=== PATIENT | male | born 1965 | race Caucasian/White ===

== ENCOUNTER 2016-12-30 12:47 | Outpatient (CLI) | payer OTHER, MEDICAID ==
[2016-03-18 10:02] VITALS: BMI 27.6
[~2016-12-30 12:47] MED LIST: CEL20 PO; CEPH500C2 PO; CITA10TA9 PO; CLIN-77 PO; DIVA250T34 PO; DIVA500T7 PO; FELB600T; FELB600T PO; HYDR2TAB34 PO; HYDR4TAB26 PO; IMI50 PO; L.RH1CAP PO; LEVE1000 PO; LEVE750T4 PO; LORA-259 PO; LORA1TAB PO; MAGN400T10 PO; MAGN400T29 PO; METR500T PO; OXCA150T5 PO; OXCA300T38 PO; OXCA300T4 PO; OXCA600T5 PO; OXYC-130 PO; OXYC5TAB84 PO; POTA-118 PO; WARF5TAB2 PO; ZOLP10TA2 PO; [UNRECOGNIZED DRUG - CODE] PO; [UNRECOGNIZED DRUG - OTHER] PO
== END 2016-12-30 19:20 | disposition home or self-care (01) ==
LOC: SUS 12:47
PROVIDERS: ATTEND Internal Medicine Hematology & Oncology
DX: R22.2 Localized swelling, mass and lump, trunk (principal); Z85.828 Personal history of other malignant neoplasm of skin

== ENCOUNTER 2017-03-01 17:11 | Emergency (ER) | payer OTHER, MEDICAID ==
[~2017-03-01] VITALS: Ht 175.3 cm; Wt 86.2 kg
[2017-03-01 17:11] VITALS: BP_SYST 123
[~2017-03-01 17:11] MED LIST changes: -CEPH500C2 PO; -CITA10TA9 PO; -CLIN-77 PO; -DIVA250T34 PO; -FELB600T; -FELB600T PO; -HYDR2TAB34 PO; -HYDR4TAB26 PO; -IMI50 PO; -LEVE1000 PO; -LORA-259 PO; -MAGN400T29 PO; -METR500T PO; -OXCA150T5 PO; -OXCA300T38 PO; -OXCA300T4 PO; -OXCA600T5 PO; -OXYC-130 PO; -OXYC5TAB84 PO; -POTA-118 PO; -WARF5TAB2 PO; -[UNRECOGNIZED DRUG - OTHER] PO
[2017-03-01 17:43] LABS: BASOPHILS % (AUTO) 0.7 % (0.0-2.0); EOSINOPHILS # (AUTO) 0.1 K/uL (0.0-0.4); EOSINOPHILS % (AUTO) 1.6 % (0.0-4.0); HEMATOCRIT 40.3 % (36-54); HEMOGLOBIN 13.7 g/dL (14.0-18.0); LYMPHOCYTES # (AUTO) 1.7 K/uL (1.0-5.5); LYMPHOCYTES % (AUTO) 36.1 % (20.5-51.5); MEAN CORPUSCULAR HEMOGLOBIN 33 pg (27-31); MEAN CORPUSCULAR HGB CONC 34 % (32-36); MEAN CORPUSCULAR VOLUME 98 fL (79.0-98.0); MONOCYTES # (AUTO) 0.6 K/uL (0.0-1.0); MONOCYTES % (AUTO) 13.6 % (1.7-9.3); NEUTROPHILS # (AUTO) 2.3 K/uL (1.8-7.7); PLATELET COUNT (AUTO) 226 K/uL (130-430); RED BLOOD CELL COUNT(AUTO) 4.12 MIL/uL (4.2-6.2); RED CELL DISTRIBUTION WIDTH 12.4 % (9.0-15.0); WHITE BLOOD COUNT (AUTO) 4.7 K/uL (4.8-10.8)
[2017-03-01 17:58] LABS: ALANINE AMINOTRANSFERASE 20 U/L (12-78); ALBUMIN 3.7 g/dL (3.4-4.8); ASPARTATE AMINOTRANSFERASE 25 U/L (10-37); CALCIUM 8.8 mg/dL (8.4-11.0); CHLORIDE 104 mmol/L (98-107); CREATININE 0.78 mg/dL (0.55-1.30); GLUCOSE 103 mg/dL (70-99); POTASSIUM 4.9 mmol/L (3.5-5.1); SODIUM SERUM 134 mmol/L (136-145); TOTAL BILIRUBIN 0.4 mg/dL (0.0-1.0)
[2017-03-01 17:59] LABS: GFR AFRICAN AMERICAN 134 mL/min (>90)
[2017-03-01 18:00] LABS: ANION GAP < 3 (5-15)
[2017-03-01 18:01] LABS: VALPROIC ACID 122 ug/mL (50-100)
[2017-03-01 18:11] LABS: UREA NITROGEN, BLOOD 20 mg/dL (8-21)
[2017-03-01] MEDS: NS 500 ML IV ONE (19:21)
[2017-03-01] MEDS: KETOROLAC TROMETHAMINE 30 MG VIAL IVP ONE (19:27)
[2017-03-01] MEDS: PROCHLORPERAZINE EDISYLATE 10 MG/2 ML VIAL IVP ONE (19:27)
[2017-03-01] MEDS: DEXAMETHASONE SOD PHOSPHATE 10 MG/ML VIAL IVP ONE (19:28)
[2017-03-01] MEDS: LORazepam 2 MG/ML VIAL (FOR ER USE) IVP ONE ×2 (19:59→20:17)
[2017-03-01 20:14] VITALS: BP_SYST 121
== END 2017-03-01 20:14 | disposition home or self-care (01) ==
LOC: SED 17:11
DX: G40.409 Other generalized epilepsy and epileptic syndromes, not intractable, without status epilepticus (principal); Z85.828 Personal history of other malignant neoplasm of skin; Z79.899 Other long term (current) drug therapy
CPT/HCPCS: 36415; 80053; 80164; 83735; 85025; 93005; 96361; 96374; 96375; 99285; J0780; J1100; J1885; J2060; J7040

== ENCOUNTER 2017-08-20 07:41 | Emergency (ER) | payer OTHER, MEDICAID ==
[~2017-08-20] VITALS: Ht 182.9 cm; Wt 108.9 kg
[2017-08-20 07:41] VITALS: BP_SYST 160
[2017-08-20] MEDS ORDERED: LORazepam 2 MG/ML VIAL (FOR ER USE) ONE (07:50)
[2017-08-20] MEDS ORDERED: NARA2.5T10 PO (07:55)
[2017-08-20] MEDS ORDERED: IMI50 PO (07:55)
[2017-08-20] MEDS ORDERED: LORazepam 2 MG/ML VIAL IVP ONE (08:00)
[2017-08-20 08:22] LABS: HEMOGLOBIN 14.4 g/dL (14.0-18.0); MEAN CORPUSCULAR HEMOGLOBIN 32 pg (27-31); MEAN CORPUSCULAR HGB CONC 32 % (32-36); MEAN CORPUSCULAR VOLUME 100 fL (79.0-98.0); PLATELET COUNT (AUTO) 349 K/uL (130-430); RED CELL DISTRIBUTION WIDTH 12.5 % (9.0-15.0); WHITE BLOOD COUNT (AUTO) 13.2 K/uL (4.8-10.8)
[2017-08-20 08:59] LABS: SODIUM SERUM 140 mmol/L (136-145)
[2017-08-20 09:00] LABS: CHLORIDE 100 mmol/L (98-107); POTASSIUM 3.9 mmol/L (3.5-5.1)
[2017-08-20 09:03] LABS: CALCIUM 9.8 mg/dL (8.4-11.0); UREA NITROGEN, BLOOD 17 mg/dL (8-21)
[2017-08-20 09:04] LABS: ALANINE AMINOTRANSFERASE 62 U/L (12-78); ALBUMIN 4.4 g/dL (3.4-4.8); ASPARTATE AMINOTRANSFERASE 30 U/L (10-37); CREATININE 1.55 mg/dL (0.55-1.30); GFR AFRICAN AMERICAN 61 mL/min (>90); TOTAL BILIRUBIN 0.2 mg/dL (0.0-1.0)
[2017-08-20 09:05] LABS: VALPROIC ACID 36 ug/mL (50-100)
[2017-08-20 09:06] LABS: ANION GAP 33 (5-15); BAND % (MANUAL) 5 % (0-6); BASOPHILS % (MANUAL) 0 % (0-2); EOSINOPHILS % (MANUAL) 2 % (0-7); GLUCOSE 234 mg/dL (70-99); LYMPHOCYTES % (MANUAL) 37 % (20-46); MONOCYTES % (MANUAL) 16 % (0-11)
[2017-08-20] MEDS ORDERED: NACL 0.9% 1,000 ML IV ONE ×2 (09:15→10:15)
[2017-08-20 11:12] LABS: CALCIUM 8.4 mg/dL (8.4-11.0); CREATININE 0.98 mg/dL (0.55-1.30)
[2017-08-20] MEDS ORDERED: DIVALPROEX SODIUM 250 MG TABLET(DEPAKOTE) PO ONE (12:00)
[2017-08-20 12:25] VITALS: BP_SYST 128
== END 2017-08-20 12:25 | disposition home or self-care (01) ==
LOC: SED 07:41
DX: G40.89 Other seizures (principal); Z85.820 Personal history of malignant melanoma of skin; Z79.899 Other long term (current) drug therapy
CPT/HCPCS: 36415; 71010; 80048; 80053; 80164; 83880; 84484; 85007; 85027; 93005; 96361; 96374; 99285; J2060; J7030

== ENCOUNTER 2017-09-25 23:49 | Inpatient (IN) | payer OTHER, MEDICAID ==
[~2017-09-25] VITALS: Ht 175.3 cm; Wt 98.4 kg
[~2017-09-25 23:49] MED LIST changes: +IMI50 PO; +NARA2.5T10 PO
[2017-09-25 23:50] VITALS: BP_SYST 136
--- NOTE | 2017-09-25 23:50 | NUR ---
Placed in room 04 . Placed on awake overnight monitor, blood pressure machine and pulse oximeter. To gown for exam. Side rails up. Report received from JAYME Christie.
--- NOTE | 2017-09-25 23:52 | NUR ---
Patient AAO x4, sitting in bed, c/o mid-sternum chest pain 10/10, non-radiating, denies shortness of breath, denies nausea or vomiting. Patient skin dry, no diaphoresis noted. Patient able to speak in full sentences without pauses. Patient has hx of back pain. No acute distress noted. Will continue to monitor.
[2017-09-26] MEDS ORDERED: KETOROLAC TROMETHAMINE 60 MG/2 ML VIAL IM ONE
[2017-09-26] MEDS ORDERED: HYDROmorphone 2 MG/ML VIAL IM ONE
--- NOTE | 2017-09-26 | NUR ---
ER at bedside examining patient.
--- NOTE | 2017-09-26 00:40 | NUR ---
Patient given IM torodol and IM dilaudid per Dr. Lea order. Patient VSS, talking with mother at bedside, no acute distress noted. Will continue to monitor.
--- NOTE | 2017-09-26 01:09 | NUR ---
Patient reports that medications did not control pain. Pain is stated to be 8/10, to left chest and upper back, no nausea or vomiting. Patient exhibiting no signs of distress. MD notified.
[2017-09-26] MEDS ORDERED: HYDROmorphone 2 MG/ML VIAL IVP ONE (01:45)
--- NOTE | 2017-09-26 01:45 | NUR ---
Unable to gain IV access for pain medication for patient. Dr. Lea informed and made aware.
--- NOTE | 2017-09-26 02:15 | NUR ---
Patient states he does not want an IV and that " my pain has actually gone down to a 3/10." Md informed.
--- NOTE | 2017-09-26 02:20 | NUR ---
Md Dr. Lea gave ok for patient to be given dilaudid IM for pain control.
[2017-09-26 02:29] LABS: BASOPHILS % (AUTO) 0.6 % (0.0-2.0); EOSINOPHILS % (AUTO) 0.7 % (0.0-4.0); HEMATOCRIT 42.2 % (36-54); HEMOGLOBIN 14.3 g/dL (14.0-18.0); LYMPHOCYTES # (AUTO) 1.4 K/uL (1.0-5.5); LYMPHOCYTES % (AUTO) 27.4 % (20.5-51.5); MEAN CORPUSCULAR HEMOGLOBIN 33 pg (27-31); MEAN CORPUSCULAR HGB CONC 34 % (32-36); MEAN CORPUSCULAR VOLUME 97 fL (79.0-98.0); MONOCYTES # (AUTO) 0.3 K/uL (0.0-1.0); MONOCYTES % (AUTO) 6.5 % (1.7-9.3); NEUTROPHILS # (AUTO) 3.5 K/uL (1.8-7.7); NEUTROPHILS % (AUTO) 64.8 % (40.0-70.0); PLATELET COUNT (AUTO) 274 K/uL (130-430); RED BLOOD CELL COUNT(AUTO) 4.33 MIL/uL (4.2-6.2); WHITE BLOOD COUNT (AUTO) 5.2 K/uL (4.8-10.8)
[2017-09-26 02:39] LABS: ANION GAP < 3 (5-15); CALCIUM 9.5 mg/dL (8.4-11.0); CHLORIDE 100 mmol/L (98-107); CREATININE 0.82 mg/dL (0.55-1.30); GFR AFRICAN AMERICAN 127 mL/min (>90); GLUCOSE 135 mg/dL (70-99); POTASSIUM 4.3 mmol/L (3.5-5.1); SODIUM SERUM 131 mmol/L (136-145); UREA NITROGEN, BLOOD 15 mg/dL (8-21)
[2017-09-26 02:44] LABS: ALANINE AMINOTRANSFERASE 39 U/L (12-78); ALBUMIN 4.3 g/dL (3.4-4.8); ASPARTATE AMINOTRANSFERASE 40 U/L (10-37); CHOLESTEROL 248 mg/dL (<200); HDL CHOLESTEROL 62 mg/dL (>45); LDL CHOLESTEROL 151 mg/dL (<100); TOTAL BILIRUBIN 0.2 mg/dL (0.0-1.0); TRIGLYCERIDES 196 mg/dL (30-150)
[2017-09-26] MEDS ORDERED: NITROGLYCERIN 1 INCH (GM) OINT. TP ONE (03:00)
[2017-09-26] MEDS ORDERED: ASPIRIN 325 MG TABLET PO ONE (03:00)
[2017-09-26] MEDS ORDERED: ONDANSETRON HCL 4 MG/2 ML VIAL IVP PRN (04:00)
[2017-09-26] MEDS ORDERED: HYDROmorphone 1 MG INJ. 1 MG/ML AMPUL IVP PRN (04:00)
[2017-09-26] MEDS ORDERED: DIPHENHYDRAMINE INJ 50 MG/ML VIAL IVP PRN (04:00)
[2017-09-26] MEDS ORDERED: HEPARIN SODIUM,PORCINE 5000 UNITS/ML VIAL IVP ONE (04:00)
[2017-09-26] MEDS ORDERED: *HEPARIN PER PHARMACY XX ONE (04:00)
[2017-09-26] MEDS ORDERED: NARATRIPTAN HCL 2.5 MG PO SCH (04:15)
[2017-09-26] MEDS ORDERED: LORazepam 1 MG TABLET PO PRN (04:15)
[2017-09-26] MEDS ORDERED: SUMAtriptan SUCCINATE 50 MG TABLET PO PRN (04:15)
[2017-09-26 04:17] VITALS: BP_SYST 130
--- NOTE | 2017-09-26 04:17 | NUR ---
ADMIT NOTE Received pt from ER to the floor with a diagnosis of ACUTE MD. Admission process initiated. patient oriented to pain management, safety and call light-teach back done.
--- NOTE | 2017-09-26 04:20 | NUR ---
Patient will be admitted to care of Dr. Vila. Admitted to Tele unit. Will go to room 103A. Belongings list completed. Summary report printed. Report will be given at bedside.
--- NOTE | 2017-09-26 04:20 | NUR ---
Transfer to tele 103 via [facility] protocol. Licensed nurse present. IV present no signs or symptoms of infiltration.
[2017-09-26 04:37] VITALS: BP_SYST 130
[2017-09-26] MEDS ORDERED: HEPARIN SODIUM,PORCINE 3000 UNITS/0.6 ML BOLUS IVP PRN (04:45)
[2017-09-26] MEDS ORDERED: HEPARIN SODIUM,PORCINE 2000 UNITS/0.4 ML BOLUS IVP PRN (04:45)
[2017-09-26] MEDS ORDERED: HEPARIN 25,000 UNITS in 250 ML PREMIX IV PRN (04:45)
[2017-09-26 05:15] LABS: BILIRUBIN,URINE NEGATIVE (NEGATIVE); BLOOD, URINE NEGATIVE (NEGATIVE); CLARITY/URINE CLOUDY (CLEAR); COLOR,URINE YELLOW (YELLOW); GLUCOSE,URINE NEGATIVE (NEGATIVE); KETONES,URINE NEGATIVE (NEGATIVE); LEUKOCYTE ESTERASE ,URINE 1+ (NEGATIVE); NITRITE, URINE NEGATIVE (NEGATIVE); PROTEIN URINE 1+ (NEGATIVE); UROBILINOGEN,URINE 0.2 (0.2-1.0)
--- NOTE | 2017-09-26 05:15 | NUR ---
CONSULT: CONSULT CALLED FOR DR. NICHOLE I SPOKE WITH NELLIE NAVARRETE REASON FOR CONSULT: ACUTE [facility] ORDERING CONSULT: DR. JAGDEEP SEBASTIAN I CALLED [phone]
[2017-09-26 05:19] LABS: BACTERIA,URINE MODERATE /HPF (None Seen); RBC,URINE 0-3 /HPF (0-3); URINE AMORPHOUS URATE 1+ /HPF (None Seen)
[2017-09-26 05:25] LABS: BARBITURATE, URINE NEGATIVE (NEG <=200); BENZODIAZEPINE, URINE NEGATIVE (NEG <=150); CANNABINOID, URINE NEGATIVE (NEG <=50); COCAINE, URINE NEGATIVE (NEG <=150); METHAMPHETAMINES SCREEN,URINE NEGATIVE (NEG <=500); OPIATE, URINE NEGATIVE (NEG <=100); PHENCYCLIDINE SCREEN,URINE NEGATIVE (NEG <=25); UR TRICYCLIC ANTIDEPRESSANTS NEGATIVE (NEG <=300); URINE AMPHETAMINE NEGATIVE (NEG <=500); URINE METHADONE NEGATIVE (NEG <=200); URINE OXYCODONE SCREEN NEGATIVE (NEG <=100); URINE PROPOXYPHENE SCREEN NEGATIVE (NEG <=300)
--- NOTE | 2017-09-26 05:25 | NUR ---
HEP DRIP STARTED 5000 UNITS OF HEPARIN IV PUSH GIVEN, THEN STARTED DRIP AT 10CC/HR.
--- NOTE | 2017-09-26 05:50 | NUR ---
PTT 23.8 CORRECTION:ACTUAL PTT IS 23.8
--- NOTE | 2017-09-26 07:25 | NUR ---
Opening Note: Patient laying in bed awake. Seizure pads in place, suction set up and nasal cannula at bedside. IV [patent and intact. Patient denies SOB nad respiratory distress. Patient denies chest pain and discomfort. Bed in low position, wheels locked, side rails up and call light within reach.
--- NOTE | 2017-09-26 07:39 | NUR ---
FINAL NOTES PATIENT IS AWAKE WATCHING TV AT THIS TIME. NO C/O PAIN AND NO S/S OF ANY DISTRESS NOTED. ALL NEEDS MET AND ANTICIPATED BY NOC NURSES. CALL LIGHT IN REACH, ENDORSED CARE TO INCOMING NURSES NADEEM RN AND RADHA DELACRUZ.
[2017-09-26 08:00] VITALS: BP_SYST 106
--- NOTE | 2017-09-26 08:14 | NUR ---
Nutrition Update Jorge Scale 18 noted. Pt admitted for acute NC Diet: cardiac low cholesterol low fat 2gm Na diet BMI: 32 kg/m2 RD to follow per nutrition care standards.
[2017-09-26] MEDS ORDERED: levETIRAcetam 500 MG TABLET PO SCH (09:00)
[2017-09-26] MEDS ORDERED: MAGNESIUM OXIDE 400 MG TABLET PO SCH (09:00)
[2017-09-26] MEDS ORDERED: CITALOPRAM HYDROBROMIDE 20 MG TABLET PO SCH (09:00)
[2017-09-26] MEDS ORDERED: FELBAMATE 400 MG PO SCH ×3 (09:00→15:00)
--- NOTE | 2017-09-26 10:10 | NUR ---
Rounding: Patient laying in bed asleep.
[2017-09-26 11:11] VITALS: BP_SYST 110
[2017-09-26 11:19] VITALS: BP_SYST 110
--- NOTE | 2017-09-26 11:20 | NUR ---
transfer Dr Alfaro here to see patient. Critical lab of troponin relayed to . pt is to transfer to [facility] for cardiac cath. Called Admitting for verification of insurance, warehouse order selector for room assignment and laboratory miller for schedule. acls transport arrange for 12 noon with [facility]. RN notified patient and pt mother re transfer.
--- NOTE | 2017-09-26 11:50 | NUR ---
CALLED [employer] FOR REPORT: CALLED [employer] FOR REPORT. SPOKE TO RECEIVING NURSE, GENA. REPORT GIVEN. GENA IS AWARE OF ESTIMATED TIME FOR RAILROAD WATCHMAN AND PLAN OF CARE FOR ANGIOGRAM TIME. ALL QUESTIONS ANSWERED.
--- NOTE | 2017-09-26 11:54 | NUR ---
READY FOR TRANSFER: PATIENT IS ON PINK GOWN AND PINK BLANKET, WHITE NAME BAND ON. ALL BELONGINGS IN BELONGING BAG. PATIENT IS AWARE OF PLAN FOR TRANSFER. MOTHER GIANNI BRAY IS AWARE OF TRANSFER. PATIENT SIGNS CONSENT FOR AUTHORIZATION FOR TRANSFER. AWAITING FOR AMBULANCE.
[2017-09-26] MEDS ORDERED: HEPARIN SODIUM,PORCINE 5000 UNITS/ML VIAL IV ONE ×2 (12:30→12:45)
--- NOTE | 2017-09-26 12:33 | NUR ---
CALLED [employer]: CALLED [employer] AND SPOKE TO RECEIVING NURSE GENA, SHE IS AWARE THAT PATIENT RECEIVED HEPARIN BOLUS [address] NICHOLE PRIOR TO DISCHARGE.
--- NOTE | 2017-09-26 12:35 | NUR ---
PT TRANSFERRED Report given to Thao at [facility]. Transfer packet with Transfer Orders and Medication Reconciliation form given to EMT with report. Exitcare provided. [facility] ID band removed, replaced with ID band with pt's name and . IV CATHTER intact, no active bleeding. All belongings sent with patient. Patient left floor via gurney escorted by EMT in no distress.
[2017-09-26] MEDS ORDERED: LACTOBACILLUS RHAMNOSUS GG PO SCH (15:00)
[2017-09-26] MEDS ORDERED: DIVALPROEX SODIUM 500 MG TABLET( DEPAKOTE) PO SCH (15:00)
[2017-09-26] MEDS ORDERED: LACTOBACILLUS RHAMNOSUS GG 1 CAP CAPSULE PO SCH (15:00)
[2017-09-26] MEDS ORDERED: ZOLPIDEM TARTRATE 5 MG TABLET PO SCH (21:00)
== END 2017-09-26 12:35 | disposition short-term general hospital (02) | DRG 282 ==
LOC: SED 23:49 → STU 09-26 04:08
PROVIDERS: ADMIT Internal Medicine; ATTEND Internal Medicine
DX: I21.4 Non-ST elevation (NSTEMI) myocardial infarction (principal); E11.9 Type 2 diabetes mellitus without complications; F03.90 Unspecified dementia, unspecified severity, without behavioral disturbance, psychotic disturbance, mood disturbance, and anxiety; J44.9 Chronic obstructive pulmonary disease, unspecified; E78.5 Hyperlipidemia, unspecified; G40.909 Epilepsy, unspecified, not intractable, without status epilepticus; K21.9 Gastro-esophageal reflux disease without esophagitis; I10 Essential (primary) hypertension; E66.9 Obesity, unspecified; Z95.0 Presence of cardiac pacemaker; Z85.828 Personal history of other malignant neoplasm of skin; Z68.32 Body mass index [BMI] 32.0-32.9, adult
CPT/HCPCS: 36415; 71010; 80053; 80061; 80164-TC; 80307; 81000-TC; 83880; 84484; 85025; 85610-TC; 85730-TC; 87086; 93005; 96372; 99285; J1170; J1644; J1885

== ENCOUNTER 2017-10-01 09:32 | Outpatient (CLI) | payer OTHER, MEDICAID ==
[~2017-10-01 09:32] MED LIST changes: -NARA2.5T10 PO
== END 2017-10-01 19:01 | disposition home or self-care (01) ==
LOC: SCT 09:32
PROVIDERS: ATTEND Internal Medicine Hospice and Palliative Medicine
DX: M47.894 Other spondylosis, thoracic region (principal); M47.896 Other spondylosis, lumbar region; M48.061 Spinal stenosis, lumbar region without neurogenic claudication; I70.90 Unspecified atherosclerosis
CPT/HCPCS: 72128; 72131

== ENCOUNTER 2018-01-21 09:50 | Inpatient (IN) | payer OTHER, MEDICAID ==
[~2018-01-21] VITALS: Ht 175.3 cm; Wt 93.0 kg
[2018-01-21 09:50] VITALS: BP_SYST 131
[~2018-01-21 09:50] MED LIST changes: -L.RH1CAP PO; +NARA2.5T10 PO; +OSEL75CA PO
[2018-01-21] MEDS ORDERED: LORazepam 2 MG/ML VIAL (FOR ER USE) IVP ONE (10:00)
[2018-01-21] MEDS ORDERED: NACL 0.9% 1,000 ML IV ONE (10:00)
[2018-01-21 10:40] LABS: CALCIUM 9.2 mg/dL (8.4-11.0); CREATININE 1.02 mg/dL (0.55-1.30); POTASSIUM 3.5 mmol/L (3.5-5.1)
[2018-01-21 10:44] LABS: BASOPHILS % (AUTO) 0.5 % (0.0-2.0); EOSINOPHILS # (AUTO) 0.1 K/uL (0.0-0.4); EOSINOPHILS % (AUTO) 2.7 % (0.0-4.0); HEMATOCRIT 42.2 % (36-54); HEMOGLOBIN 14.2 g/dL (14.0-18.0); LYMPHOCYTES # (AUTO) 2.2 K/uL (1.0-5.5); LYMPHOCYTES % (AUTO) 40.2 % (20.5-51.5); MEAN CORPUSCULAR HEMOGLOBIN 33 pg (27-31); MEAN CORPUSCULAR HGB CONC 34 % (32-36); MEAN CORPUSCULAR VOLUME 97 fL (79.0-98.0); MONOCYTES # (AUTO) 0.5 K/uL (0.0-1.0); MONOCYTES % (AUTO) 9.9 % (1.7-9.3); NEUTROPHILS # (AUTO) 2.5 K/uL (1.8-7.7); NEUTROPHILS % (AUTO) 46.7 % (40.0-70.0); PLATELET COUNT (AUTO) 271 K/uL (130-430); RED BLOOD CELL COUNT(AUTO) 4.35 MIL/uL (4.2-6.2); RED CELL DISTRIBUTION WIDTH 12.5 % (9.0-15.0); WHITE BLOOD COUNT (AUTO) 5.4 K/uL (4.8-10.8)
[2018-01-21 10:46] LABS: ALBUMIN 3.7 g/dL (3.4-4.8); TOTAL BILIRUBIN 0.2 mg/dL (0.0-1.0)
[2018-01-21] MEDS ORDERED: VALPROIC ACID 250 MG CAPSULE (DEPAKENE) PO ONE (11:15)
[2018-01-21] MEDS ORDERED: ONDANSETRON HCL 4 MG/2 ML VIAL IVP ONE (12:15)
[2018-01-21] MEDS ORDERED: MORPHINE 2 MG/ML INJ. SYRINGE IVP ONE (12:15)
[2018-01-21 12:55] VITALS: BP_SYST 108
[2018-01-21] MEDS ORDERED: LORazepam 1 MG TABLET PO PRN (13:30)
[2018-01-21] MEDS ORDERED: CITALOPRAM HYDROBROMIDE 20 MG TABLET PO ONE (14:45)
[2018-01-21] MEDS: DIVALPROEX SODIUM 500 MG TABLET( DEPAKOTE) PO SCH ×2 (14:56→20:27)
[2018-01-21] MEDS: levETIRAcetam 500 MG TABLET PO SCH ×2 (14:56→20:27)
[2018-01-21] MEDS: FELBAMATE 400 MG PO SCH ×2 (15:13→20:28)
[2018-01-21 20:00] VITALS: BP_SYST 112
[2018-01-21] MEDS ORDERED: ACETAMINOPHEN 325 MG TABLET PO PRN (20:15)
[2018-01-21] MEDS: HYDROcodone/ACETAMIN 5-325 MG TAB (NORCO/ VICODIN) PO PRN (20:27)
[2018-01-21] MEDS: MAGNESIUM OXIDE 400 MG TABLET PO SCH (20:27)
[2018-01-21] MEDS: ZOLPIDEM TARTRATE 5 MG TABLET PO SCH (21:55)
[2018-01-22 02:01] VITALS: BP_SYST 106
[2018-01-22] MEDS: HYDROcodone/ACETAMIN 5-325 MG TAB (NORCO/ VICODIN) PO PRN (06:03)
[2018-01-22 08:05] VITALS: BP_SYST 100
[2018-01-22] MEDS: levETIRAcetam 500 MG TABLET PO SCH ×3 (09:15→21:23)
[2018-01-22] MEDS: MAGNESIUM OXIDE 400 MG TABLET PO SCH ×2 (09:16→21:22)
[2018-01-22] MEDS: DIVALPROEX SODIUM 500 MG TABLET( DEPAKOTE) PO SCH ×3 (09:18→21:23)
[2018-01-22] MEDS: CITALOPRAM HYDROBROMIDE 20 MG TABLET PO SCH (09:18)
[2018-01-22] MEDS: FELBAMATE 400 MG PO SCH ×3 (09:19→21:24)
[2018-01-22 12:23] VITALS: BP_SYST 102
[2018-01-22 16:00] VITALS: BP_SYST 108
[2018-01-22 20:49] VITALS: BP_SYST 109
[2018-01-22] MEDS: ZOLPIDEM TARTRATE 5 MG TABLET PO SCH (21:22)
[2018-01-22 23:45] VITALS: BP_SYST 114
[2018-01-23 08:14] VITALS: BP_SYST 121
[2018-01-23] MEDS: FELBAMATE 400 MG PO SCH ×2 (08:58→14:06)
[2018-01-23] MEDS: MAGNESIUM OXIDE 400 MG TABLET PO SCH (08:58)
[2018-01-23] MEDS: levETIRAcetam 500 MG TABLET PO SCH ×2 (08:58→14:06)
[2018-01-23] MEDS: DIVALPROEX SODIUM 500 MG TABLET( DEPAKOTE) PO SCH ×2 (08:58→14:06)
[2018-01-23] MEDS: CITALOPRAM HYDROBROMIDE 20 MG TABLET PO SCH (08:58)
[2018-01-23 12:00] VITALS: BP_SYST 120
[2018-01-23 13:42] VITALS: BP_SYST 120
== END 2018-01-23 14:15 | disposition home or self-care (01) | DRG 101 ==
LOC: SED 09:50 → SMU 12:01
PROVIDERS: ADMIT Internal Medicine Hospice and Palliative Medicine; ATTEND Internal Medicine Hospice and Palliative Medicine
DX: G40.409 Other generalized epilepsy and epileptic syndromes, not intractable, without status epilepticus (principal); F05 Delirium due to known physiological condition; M54.9 Dorsalgia, unspecified; Z79.899 Other long term (current) drug therapy; Z85.828 Personal history of other malignant neoplasm of skin
CPT/HCPCS: 36415; 72110; 80053; 80164-TC; 83735-TC; 85025; 93005; J2060; J2270; J2405; J7030

== ENCOUNTER 2018-04-23 13:05 | Outpatient (CLI) | payer OTHER, MEDICAID ==
[~2018-04-23 13:05] MED LIST changes: +CLOB10TA PO; -IMI50 PO
[2018-04-23 13:56] LABS: BILIRUBIN,URINE NEGATIVE (NEGATIVE); BLOOD, URINE NEGATIVE (NEGATIVE); CLARITY/URINE CLEAR (CLEAR); COLOR,URINE YELLOW (YELLOW); GLUCOSE,URINE NEGATIVE (NEGATIVE); KETONES,URINE NEGATIVE (NEGATIVE); LEUKOCYTE ESTERASE ,URINE TRACE (NEGATIVE); NITRITE, URINE NEGATIVE (NEGATIVE); PROTEIN URINE 1+ (NEGATIVE); UROBILINOGEN,URINE 0.2 (0.2-1.0)
[2018-04-23 14:02] LABS: BASOPHILS % (AUTO) 0.7 % (0.0-2.0); EOSINOPHILS # (AUTO) 0.1 K/uL (0.0-0.4); EOSINOPHILS % (AUTO) 2.1 % (0.0-4.0); HEMATOCRIT 42.3 % (36-54); HEMOGLOBIN 13.9 g/dL (14.0-18.0); LYMPHOCYTES # (AUTO) 1.7 K/uL (1.0-5.5); LYMPHOCYTES % (AUTO) 29.1 % (20.5-51.5); MEAN CORPUSCULAR HEMOGLOBIN 32 pg (27-31); MEAN CORPUSCULAR HGB CONC 33 % (32-36); MEAN CORPUSCULAR VOLUME 98 fL (79.0-98.0); MONOCYTES # (AUTO) 0.5 K/uL (0.0-1.0); MONOCYTES % (AUTO) 8.8 % (1.7-9.3); NEUTROPHILS # (AUTO) 3.5 K/uL (1.8-7.7); NEUTROPHILS % (AUTO) 59.3 % (40.0-70.0); PLATELET COUNT (AUTO) 233 K/uL (130-430); RED CELL DISTRIBUTION WIDTH 13.6 % (9.0-15.0); WHITE BLOOD COUNT (AUTO) 5.9 K/uL (4.8-10.8)
[2018-04-23 14:09] LABS: RBC,URINE 0-3 /HPF (0-3)
[2018-04-23 14:10] LABS: BACTERIA,URINE FEW /HPF (None Seen); MUCUS,URINE None Seen /LPF (None Seen)
[2018-04-23 14:40] LABS: ALBUMIN 3.3 g/dL (3.4-4.8); CALCIUM 8.9 mg/dL (8.4-11.0); CREATININE 0.85 mg/dL (0.55-1.30); THYROID STIMULATING HORMONE 3.74 uIu/mL (0.34-4.82); TOTAL BILIRUBIN 0.1 mg/dL (0.0-1.0)
== END 2018-04-23 20:41 | disposition home or self-care (01) ==
LOC: SLB 13:05
PROVIDERS: ATTEND Internal Medicine Hospice and Palliative Medicine
DX: I10 Essential (primary) hypertension (principal); J18.9 Pneumonia, unspecified organism; R53.83 Other fatigue; E78.5 Hyperlipidemia, unspecified; K21.9 Gastro-esophageal reflux disease without esophagitis; E11.9 Type 2 diabetes mellitus without complications; J44.9 Chronic obstructive pulmonary disease, unspecified; Z79.899 Other long term (current) drug therapy
CPT/HCPCS: 36415; 80053; 81000-TC; 84443-TC; 85025

== ENCOUNTER 2018-05-25 15:34 | Emergency (ER) | payer OTHER, MEDICAID ==
[~2018-05-25] VITALS: Ht 175.3 cm; Wt 102.1 kg
[2018-05-25 15:45] VITALS: BP_SYST 110
--- NOTE | 2018-05-25 15:50 | NUR ---
Patient to ER bed 8 to gown for evaluation. Side rails up. Report given to Татьяна DELACRUZ.
--- NOTE | 2018-05-25 15:54 | NUR ---
Collette REGIONAL ENGINEER at bedside examining patient.
--- NOTE | 2018-05-25 15:58 | NUR ---
PT AAOX4, ABLE TO VERBALIZE NEEDS. PT STATES FOR THE PAST 1 MONTH, HE HAS HAD SWELLING/PAIN TO LEFT ANKLE/FOOT. LEFT LEG SLIGHTLY RED IN COMPARISON TO RIGHT. PT C/O 6/10 PAIN AT THIS TIME, STATES HE HAS NOT BEEN TAKING ANY PAIN MEDICATION AT HOME. PT STATES HE HAS DIFFICULTY WALKING D/T PAIN. DIFFICULTY WITH PLANTAR FLEXION OBSERVED. NO OTHER COMPLAINTS/INJURIES PER PT OR NOTED.
[2018-05-25 16:46] LABS: BASOPHILS % (AUTO) 0.9 % (0.0-2.0); EOSINOPHILS # (AUTO) 0.1 K/uL (0.0-0.4); EOSINOPHILS % (AUTO) 2.4 % (0.0-4.0); HEMATOCRIT 40.8 % (36-54); LYMPHOCYTES # (AUTO) 1.8 K/uL (1.0-5.5); LYMPHOCYTES % (AUTO) 32.6 % (20.5-51.5); MEAN CORPUSCULAR HEMOGLOBIN 33 pg (27-31); MEAN CORPUSCULAR HGB CONC 34 % (32-36); MEAN CORPUSCULAR VOLUME 97 fL (79.0-98.0); MONOCYTES # (AUTO) 0.5 K/uL (0.0-1.0); MONOCYTES % (AUTO) 8.7 % (1.7-9.3); NEUTROPHILS # (AUTO) 3.1 K/uL (1.8-7.7); NEUTROPHILS % (AUTO) 55.4 % (40.0-70.0); PLATELET COUNT (AUTO) 209 K/uL (130-430); RED BLOOD CELL COUNT(AUTO) 4.22 MIL/uL (4.2-6.2); RED CELL DISTRIBUTION WIDTH 13.1 % (9.0-15.0); WHITE BLOOD COUNT (AUTO) 5.5 K/uL (4.8-10.8)
[2018-05-25 16:49] LABS: PROTHROMBIN TIME 10.6 SECS (9.5-12.5)
[2018-05-25 17:01] LABS: CALCIUM 8.8 mg/dL (8.4-11.0); CREATININE 0.77 mg/dL (0.55-1.30); POTASSIUM 3.9 mmol/L (3.5-5.1)
[2018-05-25] MEDS ORDERED: KETOROLAC TROMETHAMINE 60 MG/2 ML VIAL IM ONE (17:45)
--- NOTE | 2018-05-25 17:51 | NUR ---
ADMINISTERED 60MG IM TORADOL PER ORDERS FOR 05/04 PAIN TO LEFT FOOT. WILL CONTINUE TO MONITOR.
--- NOTE | 2018-05-25 18:11 | NUR ---
Patient given written and verbal discharge instructions and verbalizes understanding. ER MD discussed with patient the results and treatment provided. Patient in stable condition. ID arm band removed. Rx of NAPROSYN given. Patient educated on pain management and to follow up with PMD. Pain Scale 0/10. Opportunity for questions provided and answered. Medication side effect fact sheet provided.
[2018-05-25 18:12] VITALS: BP_SYST 122
== END 2018-05-25 18:12 | disposition home or self-care (01) ==
LOC: SED 15:34
DX: M79.672 Pain in left foot (principal); R60.0 Localized edema; G40.909 Epilepsy, unspecified, not intractable, without status epilepticus; G43.909 Migraine, unspecified, not intractable, without status migrainosus; Z79.899 Other long term (current) drug therapy
CPT/HCPCS: 36415; 73630; 80048; 83605; 84550; 85025; 85610; 85730; 87040; 93971; 96372; 99285; J1885

== ENCOUNTER 2018-06-22 15:04 | Emergency (ER) | payer OTHER, MEDICAID ==
[~2018-06-22] VITALS: Ht 175.3 cm; Wt 95.3 kg
[2018-06-22 15:24] VITALS: BP_SYST 153
[2018-06-22] MEDS ORDERED: ONDANSETRON HCL 4 MG/2 ML VIAL IVP ONE (16:00)
[2018-06-22] MEDS ORDERED: MORPHINE 4 MG/ML INJ. SYRINGE IVP ONE (16:00)
[2018-06-22] MEDS ORDERED: NACL 0.9% 1,000 ML IV ONE (16:00)
[2018-06-22 16:11] LABS: BILIRUBIN,URINE 1+ (NEGATIVE); BLOOD, URINE NEGATIVE (NEGATIVE); CLARITY/URINE CLEAR (CLEAR); COLOR,URINE YELLOW (YELLOW); GLUCOSE,URINE NEGATIVE (NEGATIVE); KETONES,URINE TRACE (NEGATIVE); LEUKOCYTE ESTERASE ,URINE NEGATIVE (NEGATIVE); NITRITE, URINE NEGATIVE (NEGATIVE); PROTEIN URINE TRACE (NEGATIVE); UROBILINOGEN,URINE 0.2 (0.2-1.0)
[2018-06-22 16:17] LABS: BACTERIA,URINE MODERATE /HPF (None Seen); RBC,URINE 0-3 /HPF (0-3)
[2018-06-22 16:18] LABS: MUCUS,URINE 2+ /LPF (None Seen)
[2018-06-22 16:34] LABS: EOSINOPHILS # (AUTO) 0.1 K/uL (0.0-0.4); EOSINOPHILS % (AUTO) 1.9 % (0.0-4.0); HEMOGLOBIN 13.6 g/dL (14.0-18.0); LYMPHOCYTES # (AUTO) 1.6 K/uL (1.0-5.5); LYMPHOCYTES % (AUTO) 35.1 % (20.5-51.5); MEAN CORPUSCULAR HEMOGLOBIN 32 pg (27-31); MEAN CORPUSCULAR HGB CONC 33 % (32-36); MEAN CORPUSCULAR VOLUME 97 fL (79.0-98.0); MONOCYTES # (AUTO) 0.4 K/uL (0.0-1.0); MONOCYTES % (AUTO) 9.3 % (1.7-9.3); NEUTROPHILS # (AUTO) 2.5 K/uL (1.8-7.7); NEUTROPHILS % (AUTO) 52.7 % (40.0-70.0); PLATELET COUNT (AUTO) 233 K/uL (130-430); RED BLOOD CELL COUNT(AUTO) 4.23 MIL/uL (4.2-6.2); RED CELL DISTRIBUTION WIDTH 12.9 % (9.0-15.0); WHITE BLOOD COUNT (AUTO) 4.6 K/uL (4.8-10.8)
[2018-06-22 16:47] LABS: CALCIUM 8.6 mg/dL (8.4-11.0); CREATININE 0.77 mg/dL (0.55-1.30)
[2018-06-22 17:03] LABS: TOTAL BILIRUBIN 0.2 mg/dL (0.0-1.0)
[2018-06-22] MEDS ORDERED: cefTRIAXone 1 GM IVPB PREMIX 50 ML IV ONE (17:30)
[2018-06-22 18:31] VITALS: BP_SYST 147
== END 2018-06-22 18:31 | disposition home or self-care (01) ==
LOC: SED 15:04
DX: N39.0 Urinary tract infection, site not specified (principal); R03.0 Elevated blood-pressure reading, without diagnosis of hypertension; G40.909 Epilepsy, unspecified, not intractable, without status epilepticus; Z90.49 Acquired absence of other specified parts of digestive tract; Z79.899 Other long term (current) drug therapy
CPT/HCPCS: 36415; 74176; 80053; 81000; 83605; 83690; 85025; 87040; 87086; 93005; 96365; 96375; 99285; J0696; J2270; J2405; J7030; 96361

== ENCOUNTER 2018-06-25 13:07 | Emergency (ER) | payer OTHER, MEDICAID ==
[~2018-06-25] VITALS: Ht 175.3 cm; Wt 95.3 kg
[2018-06-25 13:12] VITALS: BP_SYST 119
[2018-06-25] MEDS ORDERED: KETOROLAC TROMETHAMINE 60 MG/2 ML VIAL IM ONE (13:30)
[2018-06-25 14:08] VITALS: BP_SYST 122
== END 2018-06-25 14:08 | disposition home or self-care (01) ==
LOC: SED 13:07
DX: R10.9 Unspecified abdominal pain (principal); R03.0 Elevated blood-pressure reading, without diagnosis of hypertension; Z79.899 Other long term (current) drug therapy
CPT/HCPCS: 96372; 99283; J1885

== ENCOUNTER 2018-10-22 08:58 | Outpatient (CLI) | payer OTHER, MEDICAID | END 2018-10-22 18:04 | disposition home or self-care (01) | LOC: SUS 08:58 | PROVIDERS: ATTEND Internal Medicine Hematology & Oncology | DX: C44.92 Squamous cell carcinoma of skin, unspecified (principal); G40.89 Other seizures; G43.909 Migraine, unspecified, not intractable, without status migrainosus; N35.919 Unspecified urethral stricture, male, unspecified site ==

== ENCOUNTER 2018-11-24 12:35 | Emergency (ER) | payer OTHER, MEDICAID ==
[~2018-11-24] VITALS: Ht 175.3 cm; Wt 95.3 kg
[2018-11-24 12:44] VITALS: BP_SYST 138
--- NOTE | 2018-11-24 12:44 | NUR ---
Patient to ER bed 2 to gown for evaluation. Side rails up.
--- NOTE | 2018-11-24 12:45 | NUR ---
Patient is awake, alert, and oriented x4. Patient is complaining of throbbing left sided flank pain 6/10 x5 days. Patient reports a history of seizures, squamous cell carcinoma.
--- NOTE | 2018-11-24 12:50 | NUR ---
ER JESSY Lara at bedside examining patient.
[2018-11-24] MEDS ORDERED: KETOROLAC TROMETHAMINE 30 MG VIAL IVP ONE (13:15)
[2018-11-24 13:50] LABS: BASOPHILS # (AUTO) 0.1 K/uL (0.0-0.2); BASOPHILS % (AUTO) 1.2 % (0.0-2.0); EOSINOPHILS # (AUTO) 0.2 K/uL (0.0-0.4); EOSINOPHILS % (AUTO) 2.9 % (0.0-4.0); HEMATOCRIT 45.7 % (36-54); HEMOGLOBIN 15.3 g/dL (14.0-18.0); LYMPHOCYTES # (AUTO) 2.1 K/uL (1.0-5.5); LYMPHOCYTES % (AUTO) 37.5 % (20.5-51.5); MEAN CORPUSCULAR HEMOGLOBIN 32 pg (27-31); MEAN CORPUSCULAR HGB CONC 34 % (32-36); MEAN CORPUSCULAR VOLUME 96 fL (79.0-98.0); MONOCYTES # (AUTO) 0.5 K/uL (0.0-1.0); MONOCYTES % (AUTO) 9.7 % (1.7-9.3); NEUTROPHILS # (AUTO) 2.7 K/uL (1.8-7.7); NEUTROPHILS % (AUTO) 48.7 % (40.0-70.0); PLATELET COUNT (AUTO) 280 K/uL (130-430); RED BLOOD CELL COUNT(AUTO) 4.75 MIL/uL (4.2-6.2); RED CELL DISTRIBUTION WIDTH 12.2 % (9.0-15.0); WHITE BLOOD COUNT (AUTO) 5.6 K/uL (4.8-10.8)
[2018-11-24 13:52] LABS: CALCIUM 8.9 mg/dL (8.4-11.0); CREATININE 0.82 mg/dL (0.55-1.30); POTASSIUM 4.6 mmol/L (3.5-5.1)
[2018-11-24 13:58] LABS: ALBUMIN 3.6 g/dL (3.4-4.8); TOTAL BILIRUBIN 0.2 mg/dL (0.0-1.0)
[2018-11-24] MEDS ORDERED: MORPHINE 4 MG/ML INJ. SYRINGE IVP ONE (14:15)
[2018-11-24 14:52] LABS: BILIRUBIN,URINE NEGATIVE (NEGATIVE); CLARITY/URINE CLEAR (CLEAR); COLOR,URINE YELLOW (YELLOW); GLUCOSE,URINE NEGATIVE (NEGATIVE); KETONES,URINE NEGATIVE (NEGATIVE); LEUKOCYTE ESTERASE ,URINE NEGATIVE (NEGATIVE); NITRITE, URINE NEGATIVE (NEGATIVE); PROTEIN URINE TRACE (NEGATIVE); UROBILINOGEN,URINE 0.2 (0.2-1.0)
[2018-11-24 14:55] LABS: BLOOD, URINE TRACE (NEGATIVE)
[2018-11-24 15:12] LABS: BACTERIA,URINE None Seen /HPF (None Seen); URINE AMORPHOUS URATE 1+ /HPF (None Seen); WBC,URINE 0-3 /HPF (0-3)
[2018-11-24 15:26] VITALS: BP_SYST 127
--- NOTE | 2018-11-24 15:26 | NUR ---
Patient given written and verbal discharge instructions and verbalizes understanding. ER MD discussed with patient the results and treatment provided. Patient in stable condition. ID arm band removed. IV catheter removed intact and dressing applied, no active bleeding. Rx of Soma, Ibuprofen given. Patient educated on pain management and to follow up with PMD. Pain Scale 3/10, flank pain, tolerable per patient. Opportunity for questions provided and answered. Medication side effect fact sheet provided.
== END 2018-11-24 15:26 | disposition home or self-care (01) ==
LOC: SED 12:35
DX: R10.9 Unspecified abdominal pain (principal); G43.909 Migraine, unspecified, not intractable, without status migrainosus
CPT/HCPCS: 36415; 74176; 80053; 81000; 85025; 96374; 96375; 99284; J1885; J2270

== ENCOUNTER 2019-01-25 08:09 | Outpatient (CLI) | payer OTHER, MEDICAID ==
[~2019-01-25 08:09] MED LIST changes: +DIVA-74 PO; -DIVA500T7 PO
== END 2019-01-25 20:55 | disposition home or self-care (01) ==
LOC: SUS 08:09
PROVIDERS: ATTEND Internal Medicine Hematology & Oncology
DX: R16.0 Hepatomegaly, not elsewhere classified (principal); C44.92 Squamous cell carcinoma of skin, unspecified; G40.89 Other seizures; G43.909 Migraine, unspecified, not intractable, without status migrainosus; N35.911 Unspecified urethral stricture, male, meatal; Z90.49 Acquired absence of other specified parts of digestive tract
CPT/HCPCS: 76700-TC

== ENCOUNTER 2019-04-11 08:12 | Outpatient (CLI) | payer OTHER, MEDICAID ==
[2019-04-11] MEDS ORDERED: IOHEXOL 0 ML IV ONE (08:57)
== END 2019-04-11 21:16 | disposition home or self-care (01) ==
LOC: SCT 08:12
PROVIDERS: ATTEND Urology Pediatric Urology
DX: R31.0 Gross hematuria (principal)
CPT/HCPCS: Q9967

== ENCOUNTER 2019-06-30 14:17 | Outpatient (CLI) | payer OTHER, MEDICAID ==
[2019-06-30 14:55] LABS: BILIRUBIN,URINE NEGATIVE (NEGATIVE); CLARITY/URINE CLEAR (CLEAR); COLOR,URINE YELLOW (YELLOW); GLUCOSE,URINE NEGATIVE (NEGATIVE); KETONES,URINE NEGATIVE (NEGATIVE); LEUKOCYTE ESTERASE ,URINE NEGATIVE (NEGATIVE); NITRITE, URINE NEGATIVE (NEGATIVE); PH,URINE 5.5 (5.0-8.0); PROTEIN URINE NEGATIVE (NEGATIVE); UROBILINOGEN,URINE 0.2 (0.2-1.0)
[2019-06-30 14:58] LABS: BLOOD, URINE TRACE (NEGATIVE)
[2019-06-30 15:05] LABS: BACTERIA,URINE FEW /HPF (None Seen); WBC,URINE 0-3 /HPF (0-3)
== END 2019-06-30 18:57 | disposition home or self-care (01) ==
LOC: SLB 14:17
PROVIDERS: ATTEND Internal Medicine Hematology & Oncology
DX: C44.92 Squamous cell carcinoma of skin, unspecified (principal); G40.89 Other seizures; G43.909 Migraine, unspecified, not intractable, without status migrainosus; N35.911 Unspecified urethral stricture, male, meatal; R82.998 Other abnormal findings in urine
CPT/HCPCS: 81000-TC; 87086

== ENCOUNTER 2019-10-03 14:05 | Outpatient (CLI) | payer OTHER, MEDICAID | END 2019-10-03 21:03 | disposition home or self-care (01) | LOC: SUS 14:05 | PROVIDERS: ATTEND Specialist | DX: E04.8 Other specified nontoxic goiter (principal) | CPT/HCPCS: 76536-TC ==

== ENCOUNTER 2019-12-16 09:19 | Outpatient (CLI) | payer OTHER, MEDICAID ==
[2019-12-16] MEDS ORDERED: IOHEXOL 100 ML IV ONE (10:09)
[2019-12-16] MEDS ORDERED: DIATR MEGLU/DIATRIZ SOD 30 ML SOLUTION PO ONE (10:09)
== END 2019-12-16 18:00 | disposition home or self-care (01) ==
LOC: SUS 09:19
PROVIDERS: ATTEND Internal Medicine Hematology & Oncology
DX: C44.92 Squamous cell carcinoma of skin, unspecified (principal); K76.0 Fatty (change of) liver, not elsewhere classified; N35.911 Unspecified urethral stricture, male, meatal; G40.89 Other seizures; G43.909 Migraine, unspecified, not intractable, without status migrainosus; Z90.49 Acquired absence of other specified parts of digestive tract
CPT/HCPCS: 74177; 76881; Q9964; Q9967

== ENCOUNTER 2020-04-18 10:45 | Emergency (ER) | payer OTHER, MEDICAID ==
[~2020-04-18] VITALS: Ht 177.8 cm; Wt 99.8 kg
[2020-04-18 10:45] VITALS: BP_SYST 108
--- NOTE | 2020-04-18 10:45 | NUR ---
BROUGHT IN BY [facility]. TRIAGED AND REPORT GIVEN TO KRYSTYNA
--- NOTE | 2020-04-18 11:01 | NUR ---
PT BROUGHT IN FOR WITNESSED 5 MINUTE SEIZURE, ASSISTED TO GROUND, NO INJURY, NO TRAUMA. PT IS WELL KNOWN TO ER, H/O SEIZURES.
--- NOTE | 2020-04-18 11:47 | NUR ---
STAR Laird at bedside examining patient.
[2020-04-18] MEDS ORDERED: KETOROLAC TROMETHAMINE 30 MG VIAL IVP ONE (12:00)
[2020-04-18 12:49] LABS: BASOPHILS % (AUTO) 0.3 % (0.0-2.0); EOSINOPHILS % (AUTO) 0.3 % (0.0-4.0); HEMATOCRIT 37.5 % (36-54); HEMOGLOBIN 12.4 g/dL (14.0-18.0); LYMPHOCYTES # (AUTO) 0.8 K/uL (1.0-5.5); LYMPHOCYTES % (AUTO) 9.9 % (20.5-51.5); MEAN CORPUSCULAR HEMOGLOBIN 33 pg (27-31); MEAN CORPUSCULAR HGB CONC 33 % (32-36); MEAN CORPUSCULAR VOLUME 99 fL (79.0-98.0); MONOCYTES # (AUTO) 0.5 K/uL (0.0-1.0); MONOCYTES % (AUTO) 6.3 % (1.7-9.3); NEUTROPHILS # (AUTO) 6.7 K/uL (1.8-7.7); NEUTROPHILS % (AUTO) 83.2 % (40.0-70.0); PLATELET COUNT (AUTO) 224 K/uL (130-430); WHITE BLOOD COUNT (AUTO) 8.1 K/uL (4.8-10.8)
[2020-04-18 12:52] LABS: CALCIUM 8.7 mg/dL (8.4-11.0); CREATININE 1.14 mg/dL (0.55-1.30); POTASSIUM 4.5 mmol/L (3.5-5.1)
[2020-04-18 12:58] LABS: ALBUMIN 3.6 g/dL (3.4-4.8); TOTAL BILIRUBIN 0.2 mg/dL (0.0-1.0)
--- NOTE | 2020-04-18 13:41 | NUR ---
FLORI, MOTHER OF PT, CALLED REQUESTED WE CALL FOR ANY UPDATE ON PT. [phone]
[2020-04-18 14:52] LABS: BARBITURATE, URINE NEGATIVE (NEG <=200); BENZODIAZEPINE, URINE POSITIVE (NEG <=150); BILIRUBIN,URINE NEGATIVE (NEGATIVE); BLOOD, URINE NEGATIVE (NEGATIVE); CANNABINOID, URINE NEGATIVE (NEG <=50); COCAINE, URINE NEGATIVE (NEG <=150); COLOR,URINE YELLOW (YELLOW); GLUCOSE,URINE NEGATIVE (NEGATIVE); KETONES,URINE NEGATIVE (NEGATIVE); LEUKOCYTE ESTERASE ,URINE NEGATIVE (NEGATIVE); METHAMPHETAMINES SCREEN,URINE NEGATIVE (NEG <=500); NITRITE, URINE NEGATIVE (NEGATIVE); OPIATE, URINE POSITIVE (NEG <=100); PHENCYCLIDINE SCREEN,URINE NEGATIVE (NEG <=25); PROTEIN URINE NEGATIVE (NEGATIVE); UR TRICYCLIC ANTIDEPRESSANTS NEGATIVE (NEG <=300); URINE AMPHETAMINE NEGATIVE (NEG <=500); URINE METHADONE NEGATIVE (NEG <=200); URINE OXYCODONE SCREEN NEGATIVE (NEG <=100); URINE PROPOXYPHENE SCREEN NEGATIVE (NEG <=300); UROBILINOGEN,URINE 0.2 (0.2-1.0)
[2020-04-18 14:54] LABS: CLARITY/URINE SLIGHTLY HAZY (CLEAR)
[2020-04-18 15:25] VITALS: BP_SYST 110
--- NOTE | 2020-04-18 15:25 | NUR ---
DPatient given written and verbal discharge instructions and verbalizes understanding. ER MD discussed with patient the results and treatment provided. Patient in stable condition. ID arm band removed. IV catheter removed intact and dressing applied, no active bleeding. NO Rx given. Patient educated on pain management and to follow up with PMD. Pain Scale 2/10. Opportunity for questions provided and answered. Medication side effect fact sheet provided.
== END 2020-04-18 15:25 | disposition home or self-care (01) ==
LOC: SED 10:45
DX: G40.909 Epilepsy, unspecified, not intractable, without status epilepticus (principal); G43.909 Migraine, unspecified, not intractable, without status migrainosus; Z85.828 Personal history of other malignant neoplasm of skin; Z79.899 Other long term (current) drug therapy
CPT/HCPCS: 36415; 71045; 80053; 80164; 80307; 81003; 83880; 84484; 85025; 93005; 96374; 99285; J1885

== ENCOUNTER → 2020-04-27 | Outpatient (CLI) | payer OTHER, MEDICAID | END | disposition home or self-care (01) | LOC: SRD 14:11 | PROVIDERS: ATTEND Internal Medicine Hematology & Oncology | DX: M77.9 Enthesopathy, unspecified (principal); M25.841 Other specified joint disorders, right hand; C44.92 Squamous cell carcinoma of skin, unspecified; G40.89 Other seizures; G43.909 Migraine, unspecified, not intractable, without status migrainosus; N35.911 Unspecified urethral stricture, male, meatal | CPT/HCPCS: 73060-TC; 73090 ==

== ENCOUNTER 2020-05-31 10:10 | Outpatient (CLI) | payer OTHER, MEDICAID | END 2020-05-31 20:36 | disposition home or self-care (01) | LOC: SRD 10:10 | PROVIDERS: ATTEND Internal Medicine Hematology & Oncology | DX: C44.92 Squamous cell carcinoma of skin, unspecified (principal); N35.911 Unspecified urethral stricture, male, meatal; G40.89 Other seizures; G43.909 Migraine, unspecified, not intractable, without status migrainosus | CPT/HCPCS: 71046-TC ==

== ENCOUNTER 2020-06-04 14:52 | Outpatient (CLI) | payer OTHER, MEDICAID ==
[2020-06-04 16:32] LABS: BASOPHILS % (AUTO) 0.6 % (0.0-2.0); EOSINOPHILS # (AUTO) 0.1 K/uL (0.0-0.4); EOSINOPHILS % (AUTO) 1.3 % (0.0-4.0); HEMATOCRIT 45.3 % (36-54); HEMOGLOBIN 14.6 g/dL (14.0-18.0); LYMPHOCYTES # (AUTO) 2.1 K/uL (1.0-5.5); LYMPHOCYTES % (AUTO) 44.2 % (20.5-51.5); MEAN CORPUSCULAR HEMOGLOBIN 32 pg (27-31); MEAN CORPUSCULAR HGB CONC 32 % (32-36); MEAN CORPUSCULAR VOLUME 100 fL (79.0-98.0); MONOCYTES # (AUTO) 0.5 K/uL (0.0-1.0); MONOCYTES % (AUTO) 9.9 % (1.7-9.3); PLATELET COUNT (AUTO) 187 K/uL (130-430); RED BLOOD CELL COUNT(AUTO) 4.52 MIL/uL (4.2-6.2); RED CELL DISTRIBUTION WIDTH 14.4 % (9.0-15.0); WHITE BLOOD COUNT (AUTO) 4.6 K/uL (4.8-10.8)
[2020-06-04 17:01] LABS: INR 1.1 (0.80-1.20); PROTHROMBIN TIME 10.7 SECS (9.5-12.5)
[2020-06-04 17:08] LABS: ALBUMIN 3.8 g/dL (3.4-4.8); CALCIUM 9.7 mg/dL (8.4-11.0); CREATININE 0.69 mg/dL (0.55-1.30); FREE T4 (FREE THYROXINE) 1.1 ng/dl (0.8-1.5); POTASSIUM 4.2 mmol/L (3.5-5.1); THYROID STIMULATING HORMONE 4.18 uIu/mL (0.36-3.74); TOTAL BILIRUBIN 0.3 mg/dL (0.0-1.0)
[2020-06-05 09:06] LABS: CEA 2.8 ng/mL (0.0-4.7); FOLATE (FOLIC ACID) 4.4 ng/mL (>3.0); TRIIODOTHYRONINE, FREE 2.4 pg/mL (2.0-4.4)
[2020-06-07 22:57] LABS: LEVETIRACETAM 53.3 ug/mL (10.0-40.0)
== END 2020-06-04 19:47 | disposition home or self-care (01) ==
LOC: SUS 14:52
PROVIDERS: ATTEND Internal Medicine Hematology & Oncology
DX: C44.92 Squamous cell carcinoma of skin, unspecified (principal); G43.909 Migraine, unspecified, not intractable, without status migrainosus; N35.911 Unspecified urethral stricture, male, meatal; M81.0 Age-related osteoporosis without current pathological fracture; R97.0 Elevated carcinoembryonic antigen [CEA]; R97.8 Other abnormal tumor markers; E03.9 Hypothyroidism, unspecified
CPT/HCPCS: 36415; 80053; 80164-TC; 82140-TC; 82306; 82378; 82542; 82607; 82746; 84439; 84443-TC; 84481; 85025; 85379; 85384-TC; 85610-TC; 85730-TC; 86301